=== PATIENT | male | born 1995 | race African-American/Black ===

== ENCOUNTER 2021-03-05 22:21 | Emergency (ER) | payer BC ==
[2021-03-05 22:24] VITALS: BP 128/73; PULSE 69; TEMP 98.3; BMI 23.1
[2021-03-05] MEDS ORDERED: ASPIRIN 81 MG CHEWABLE TABLETS PO ONE (23:08)
[2021-03-05] MEDS ORDERED: ASPIRIN 81 MG CHEWABLE TABLETS ONE (23:13)
[2021-03-05 23:33] LABS: BASO % 0.8 % (0-2.0); EOS % 5.1 % (0-4.5); HEMATOCRIT 37.6 % (35.4-49); HEMOGLOBIN 12.8 GM/dL (11.7-16.9); LYMPH % 21.9 % (8-40); MCH 29.4 pg (25.7-33.7); MCHC 34.2 g/dl (32.0-35.9); MEAN CELL VOLUME 86.1 fl (80-96); MEAN PLT VOLUME 10.2 fl (7.5-11.1); MONO % 5.9 % (3.8-10.2); NEUT % 66.3 % (42.8-82.8); PLATELET COUNT 199 10^3/uL (134-434); RBC 4.37 M/mm3 (4.00-5.60); RDW 15.1 % (11.9-15.9); WHITE BLOOD COUNT 7.6 K/mm3 (4.0-10.0)
[2021-03-05 23:35] LABS: PH,URINE 5.5 (5.0-8.0); URINE APPEARANCE CLEAR; URINE BILIRUBIN NEGATIVE (NEGATIVE); URINE COLOR YELLOW; URINE GLUCOSE (UA) NEGATIVE (NEGATIVE); URINE KETONE TRACE (NEGATIVE); URINE LEUK ESTERASE NEGATIVE (NEGATIVE); URINE NITRITE NEGATIVE (NEGATIVE); URINE PROTEIN NEGATIVE (NEGATIVE)
[2021-03-05 23:52] LABS: CHLORIDE 104 mmol/L (98-107); SODIUM 140 mmol/L (136-145)
[2021-03-05 23:54] LABS: ANION GAP 4 MMOL/L (8-16); CALCIUM 9.4 mg/dL (8.5-10.1); CO2 32 mmol/L (21-32); GLUCOSE,RANDOM 98 mg/dL (74-106); MAGNESIUM 2.4 mg/dL (1.8-2.4)
[2021-03-05 23:58] LABS: SGOT/AST 18 U/L (15-37); SGPT/ALT 27 U/L (13-61)
[2021-03-06] LABS: ALK PHOS 60 U/L (45-117); BILIRUBIN,TOTAL 0.6 mg/dL (0.2-1); TOT PROT 7.3 g/dl (6.4-8.2)
== END 2021-03-06 00:48 | disposition home or self-care (01) ==
LOC: JER 22:21
DX: R07.9 Chest pain, unspecified (principal)
CPT/HCPCS: 36415; 71046-TC-FY; 80053; 81003; 82550; 82553; 83735; 84484; 85025; 93005; 93010; 99285-25; C9803; U0003; U0005

== ENCOUNTER 2022-03-09 09:02 | Emergency (ER) | payer BC ==
[2022-03-09 09:13] VITALS: BP 138/77; PULSE 63; RESP 17; TEMP 97.7; BMI 27.2
== END 2022-03-09 10:27 | disposition home or self-care (01) ==
LOC: JERFT 09:02
DX: H57.89 Other specified disorders of eye and adnexa (principal)
CPT/HCPCS: 99283-25